=== PATIENT | female | born 1990 | race Caucasian/White ===

== ENCOUNTER 2021-12-20 10:50 | Outpatient (CLI) | payer OTHER, SELFPAY ==
--- NOTE | ~2021-12-20 | MMUS_ITS ---
EXAMINATION: MM diagnostic meghan BI w nate, US breast BI limited HISTORY: Bilateral breast pain TECHNIQUE: Craniocaudal, mediolateral, and mediolateral oblique 3-D tomosynthesis images of the breas ts were performed and synthetic 2-D images were generated. CAD analysis was submitted and interpreted . High resolution limited bilateral breast ultrasound was performed. COMPARISON: None, baseline BREAST PARENCHYMAL COMPOSITION: There are scattered areas of fibroglandular density. FINDINGS: MAMMOGRAPHIC FINDINGS: Right breast: There appears to be an approximately 8 mm obscured, oval, low density mass in the poste rior third of the outer breast at the 9:00 location corresponding to the palpable abnormality of conc main. Left breast: There is a 1.4 x 0.9 cm equal density mass with mildly irregular margins at the 4:00 loc ation 7 cm from the nipple in the lower-outer breast. There is a 5 mm ULTRASOUND: Right breast: There is a 12 mm x 11 mm oval, circumscribed, parallel, hypoechoic mass with no posteri or features or internal vascularity at the 9:00 location 8 cm from the nipple. Left breast: There is a 12 mm x 7 mm irregular, parallel, hypoechoic mass with indistinct margins, mi xed posterior features, and internal vascularity at the 4:00 location 10 cm from the nipple. A normal -appearing lymph node is noted in the left axilla. A 6 mm mass at the 3:00 location 10 cm from the ni pple has central fat, consistent with an intramammary lymph node. IMPRESSION: 1. Indeterminate mass at the 4:00 location 10 cm from the nipple in the left breast. Ultrasound-guide d biopsy is recommended. 2. Probably benign right breast mass. Recommend follow-up targeted right breast ultrasound six months . BI-RADS category 4, suspicious findings. Reviewed, dictated and finalized at location A. IMPRESSION: 1. Indeterminate mass at the 4:00 location 10 cm from the nipple in the left br east. Ultrasound-guided biopsy is recommended. 2. Probably benign right breast mass. Recommend follow-up targeted right breast ultrasound six months. BI-RADS category 4, suspicious findings.
== END 2021-12-20 10:51 | disposition home or self-care (01) ==
LOC: ANHIMG 10:58
DX: N63.0 Unspecified lump in unspecified breast (principal); R92.8 Other abnormal and inconclusive findings on diagnostic imaging of breast
CPT/HCPCS: 76642; 77062; 77066; G0279

== ENCOUNTER 2023-08-17 11:24 | Emergency (ER) | payer OTHER, SELFPAY ==
--- NOTE | ~2023-08-17 | XR_ITS ---
EXAMINATION: XR ribs RT 2V w CXR 2V Exam Date/Time: 08/17/2023 14:30 CDT HISTORY: Right chest wall pain recent roll inj rt breast hx past bx Comparison: None available. RESULT: Lines, tubes, and devices: Surgical clips over the GE junction. Lungs and pleura: Very minimal posterior costophrenic angle blunting. Lungs are otherwise clear. Cardiothymic silhouette: Normal. Other: No acute osseous or upper abdominal finding. IMPRESSION: Trace bilateral pleural effusions versus chronic pleural blunting. No other acute cardiopulmonary pro cess. No acute osseous finding the right ribs. Reviewed, dictated and finalized at location K. IMPRESSION: Trace bilateral pleural effusions versus chronic pleural blunting. No other acu te cardiopulmonary process. No acute osseous finding the right ribs.
[2023-08-17 11:27] VITALS: BP 117/70; PULSE 101; RESP 20; TEMP 36.4; O2SAT 100
--- NOTE | 2023-08-17 14:37 | ED.GENADULT ---
HPI - General Adult General Chief complaint: Unspecified Stated complaint: breast pain Time Seen by Provider: 08/17/23 13:15 History of Present Illness HPI narrative: This is a 32-year-old female, with history of breast cancer status post lumpectomy from the right breast, who presents to the emergency department complaining of right chest wall pain for the past 2 days. The patient states 2 days ago, she was sleeping when she rolled over onto her right side. She felt and heard a pop, associated with severe right chest wall pain. The aggravated by movement or deep breathing. She denies shortness of breath, cough, rash, fevers, chills, abnormal nipple discharge or hemoptysis. She has no other complaints at this time. Related Data Allergies Allergy/AdvReac Type Severity Reaction Status Date / Time nickel Allergy Mild HIVES Verified 08/17/23 11:32 Review of Systems Review of Systems: All systems reviewed & are unremarkable except as noted in HPI and below PMFSH Past Medical History Medical History Breast mass, right Surgical History Surgical History H/O lumpectomy Social History Social History Smoking status: Never smoker Alcohol intake: never Substance use: never Exam Narrative: GENERAL: Well-developed, well-nourished, and in no acute distress. HEAD: Normocephalic, atraumatic. EYES: PERRLA and EOMI. CHEST: Clear to auscultation. No respiratory distress. No wheezes rales or rhonchi. Right chest wall tender to palpation at approximately 8th and 9th ribs, primarily at the lateral sternal border BREAST (exam chaperoned by female RN Misa) there is mild swelling noted over the right pectoral muscle without discrete mass, erythema or induration. The breast tissue appears normal. HEART: Regular rate and rhythm. No murmur heard. Normal peripheral pulses. ABDOMEN: Soft, nontender, nondistended, normal active bowel sounds. EXTREMITIES: Normal range of motion. No edema. SKIN: Warm, dry, no rash. NEURO: Alert and oriented x3. No focal deficit. Moving all 4 limbs spontaneously PSYCH: Normal mood and affect. Course Course Emergency Course: 14:10 - Bedside soft tissue ultrasound of the right anterior chest wall by me is not concerning for fluid collection or mass. 15:25 - My review of the patient's rib series is not concerning for fracture or dislocation. I do not appreciate pneumothorax or cardiopulmonary mass. Due to technical malfunctions, the patient's film is not yet been read by Radiology. I discussed these findings my interpretation the patient with recommendation for pain control and primary care follow-up. The patient wishes not to wait for radiology interpretation at this time. Will discharge. I discussed the findings and recommendations with the patient. Discussed return and emergency precautions including signs/symptoms of ACS in respiratory distress. The patient voiced understanding and agreement with the plan. All questions answered to her satisfaction. Vital Signs Vital signs: Vital Signs Temperature 97.6 F 08/17/23 11:27 Pulse Rate 101 H 08/17/23 11:27 Respiratory Rate 20 08/17/23 11:27 Blood Pressure 117/70 08/17/23 11:27 Pulse Oximetry 100 08/17/23 11:27 Oxygen Delivery Room Air 08/17/23 11:27 Temperature 97.6 F 08/17/23 11:27 Pulse Rate 101 H 08/17/23 11:27 Respiratory Rate 20 08/17/23 11:27 Blood Pressure 117/70 08/17/23 11:27 Pulse Oximetry 100 08/17/23 11:27 Oxygen Delivery Room Air 08/17/23 11:27 Medical Decision Making MDM Narrative Medical decision making narrative: Plan: Imaging, pain control, reassess Differential Diagnosis Differential Diagnosis: Costochondritis, rib fracture, pneumothorax, other Vital Signs Vital Signs: Vital Signs Temperature 97.6 F 08/17/23 1
[2023-08-17] MEDS: LIDOCAINE 5% PATCH 1 PATCH TRANSDERM (14:50)
[2023-08-17] MEDS: oxyCODONE/ACETAMINOPHEN (*CRX) 5-325 MG TABLET 1 TABLET PO (14:50)
[2023-08-17 15:36] VITALS: RESP 16
== END 2023-08-17 15:38 | disposition home or self-care (01) ==
PROVIDERS: Emergency Provider Preventive Medicine Aerospace Medicine
DX: M94.0 Chondrocostal junction syndrome [Tietze] (principal)
CPT/HCPCS: 71046; 71100; 99283; A9270